=== PATIENT | female | born 1995 | race Caucasian/White ===

== ENCOUNTER 2017-09-12 10:39 | Day surgery (SDC) | payer OTHER ==
[2017-09-12] VITALS (9 sets, daily range): BP systolic 107–114; BP diastolic 50–59; PULSE 56–77; RESP 12–18; Ht 165.1 cm; Wt 78.4 kg
[~2017-09-12] VITALS: Ht 165.1 cm; Wt 78.4 kg
[~2017-09-12 10:39] MED LIST: CEFAZOLIN 1 GM INJ ONE; PROPOFOL 200 MG INJ ONE
[2017-09-12] MEDS ORDERED: SOD CHLORIDE 0.9% 1,000 ML IV SCH (11:00)
[2017-09-12] MEDS ORDERED: CEFAZOLIN 2 GM/50 ML (PMX) 50 ML IVPB SCH (12:00)
[2017-09-12] MEDS ORDERED: ROPIVACAINE 0.5 % 30 ML VIAL ONE (13:11)
[2017-09-12] MEDS ORDERED: MIDAZOLAM 1 MG/ML 2 ML INJ ONE (13:11)
[2017-09-12] MEDS ORDERED: METOCLOPRAMIDE 10 MG INJ ONE (13:12)
[2017-09-12] MEDS ORDERED: BUPIVACAINE 0.25% (MPF) 30 ML INJ ONE (13:21)
[2017-09-12] MEDS ORDERED: DEXAMETHASONE 4 MG/ML 1 ML INJ ONE (13:35)
[2017-09-12] MEDS ORDERED: FENTAnyl 50 MCG/ML VIAL ONE (13:56)
[2017-09-12] MEDS ORDERED: NEOSTIGMINE 3 MG/3 ML SYRINGE ONE (13:59)
[2017-09-12] MEDS ORDERED: KETOROLAC 30 MG INJ ONE (13:59)
[2017-09-12] MEDS ORDERED: GLYCOPYRROLATE 0.4 MG INJ ONE (13:59)
--- NOTE | 2017-09-12 14:07 | OPR ---
Date/Time of Note Date/Time of Note DATE: 09/12/17 TIME: 14:04 Operative Report Procedure Date: Sep 12, 2017 Preoperative Diagnosis symptomatic gallstones Postoperative Diagnosis same Operation/Procedure Performed 1. laparoscopic cholecystectomy 2. therapeutic injection of subcutaneous local anesthesia Surgeon see signature line Marzipan Maker none Anesthesia Type: general Estimated Blood Loss: 10 - 50 ml's Transfusion none Specimen gallbladder Grafts/Implants none Complications none Pt Condition Post Procedure: stable Indications This is a 21-year-old female with substernal gallstones. She requests surgical excision of her gallbladder. Risks alternatives benefits and percent were discussed the patient. Patient's best understanding consents to the operation. Procedure Description Patient is taken to the OR and prepped and draped in usual sterile fashion. Surgical timeout is performed. IV antibiotics given. Informed local incision was made transversely with a 15 blade. Dissection cautery was carried onto the fascia. The fascia was grasped with Ileana's and divided with curved Rodrigues scissors. 0 Vicryl U stitch was placed into the fascia. Blueness on trocar is introduced. Pneumoperitoneum is established. Midepigastric 12 mm optical trocar was placed under direct visualization. Right upper quadrant upper flank 5 mm optical trochars placed under direct visualization. Upon initial inspection there are some adhesions to the gallbladder which were taken down bluntly. The gallbladder was grasped by the fundus and the lateral and our direction. This allowed careful dissection of the cystic duct. The critical view is established. The cystic duct was divided with 3 clips proximal and distally divided with 35 mm echelon vessel stapler the cystic artery was divided with 3 clips proximal and clip distal. The gallbladder is taken off the gallbladder bed. There is good hemostasis. The gallbladder was retrieved using Endo Catch bag. Ports removed under direct visualization. 0 Vicryl U stitch was tied down. Skin was closed with skin teresa. Therapeutic sub- contains local anesthesia was injected throughout the incision sites. Dry dressings were applied. Josue BARRIOS Sep 12, 2017 14:07
[2017-09-12] MEDS ORDERED: MEPERIDINE 25 MG INJ ONE (14:20)
[2017-09-12] MEDS ORDERED: HYDROmorphONE (0.2 MG/ML) 10ML SYG IV ONE (14:21)
[2017-09-12] MEDS ORDERED: ONDANSETRON 4 MG INJ ONE (14:21)
[2017-09-12] MEDS ORDERED: MEPERIDINE 25 MG INJ IV PRN ×2 (14:30→15:30)
[2017-09-12] MEDS ORDERED: DIPHENHYDRAMINE 50 MG INJ IV PRN ×2 (14:30→15:30)
[2017-09-12] MEDS ORDERED: OXYCODONE/ACETAMINOPHEN (5/325) TAB PO PRN ×2 (14:30)
[2017-09-12] MEDS ORDERED: HYDROCODONE/APAP (5/325) TAB PO ONE (14:30)
[2017-09-12] MEDS ORDERED: ONDANSETRON 4 MG INJ IV PRN ×2 (14:30→15:30)
[2017-09-12] MEDS ORDERED: HYDROmorphONE (0.2 MG/ML) 10ML SYG IV PRN ×4 (14:30→15:30)
[2017-09-12] MEDS: HYDROmorphONE (0.2 MG/ML) 10ML SYG IV PRN ×4 (14:34→15:03)
[2017-09-12] MEDS ORDERED: METOCLOPRAMIDE 10 MG INJ IV PRN (15:30)
== END 2017-09-12 16:30 | disposition home or self-care (01) ==
LOC: SDS 10:39
PROVIDERS: ATTEND Surgery
DX: K80.10 Calculus of gallbladder with chronic cholecystitis without obstruction (principal)
CPT/HCPCS: 47562; 88304; J0690; J1100; J1170; J1885; J2175; J2250; J2405; J2710; J2765; J2795; J3010; Z7512; Z7610